=== PATIENT | male | born 1980 | race African-American/Black ===

== ENCOUNTER 2024-01-24 18:57 | Emergency (ER) | payer OTHER ==
[2024-01-24 19:36] VITALS: BP 151/111; PULSE 92; RESP 20; TEMP 98.5; BMI 28.5
== END 2024-01-24 20:11 | disposition home or self-care (01) ==
LOC: FER 18:57
DX: M79.672 Pain in left foot (principal); W23.1XXA Caught, crushed, jammed, or pinched between stationary objects, initial encounter
CPT/HCPCS: 73630-TC-LT; 99283-25